=== PATIENT | male | born 1990 | race Hispanic/Latino ===

== ENCOUNTER 2020-03-09 07:22 | Emergency (ER) | payer SELFPAY ==
[2020-03-09] MEDS ORDERED: Lidocaine 1% w/Epinephrine 1:100K 20 ML VIAL ONE (08:26)
--- NOTE | 2020-03-09 09:12 | CT ---
CT BRAIN WITHOUT CONTRAST: Date: 03/09/2020 HISTORY: Trauma. Laceration above left eyebrow. Headache. FINDINGS: No evidence of acute infarct, hemorrhage, midline shift, or abnormal extra-axial fluid collections ar e seen. The ventricular size is normal and the basilar cisterns are patent. The bony calvarium is int act. There is mucosal disease in the paranasal sinuses. There is soft tissue swelling and laceration in the left periorbital region. IMPRESSION: No CT evidence of acute intracranial process. POS: OFF
[2020-03-09] MEDS ORDERED: Bacitracin 1 PK ONE (09:59)
== END 2020-03-09 10:02 | disposition home or self-care (01) ==
LOC: ERS 07:22
DX: S01.112A Laceration without foreign body of left eyelid and periocular area, initial encounter (principal); W18.09XA Striking against other object with subsequent fall, initial encounter
CPT/HCPCS: 12013; 70450